=== PATIENT | male | born 2000 | race Caucasian/White ===

== ENCOUNTER 2020-02-19 13:28 | Inpatient (IN) | payer MEDICAID ==
[~2020-02-19] VITALS: Ht 170.2 cm; Wt 54.5 kg
[2020-02-19] MEDS ORDERED: QUEtiapine FUMARATE 100 MG TABLET PO PRN (16:45)
[2020-02-19] MEDS ORDERED: MAGNESIUM HYDROXIDE SUSPENSION 30 ML UDCUP PO PRN (16:45)
[2020-02-19] MEDS ORDERED: MAG HYDROX/AL HYDROX/SIMETH ES 30 ML SUSPENSION UDCUP PO PRN (16:45)
[2020-02-19] MEDS ORDERED: PROMETHAZINE HCL 25 MG TABLET PO PRN (16:45)
[2020-02-19] MEDS ORDERED: LOPERAMIDE HCL 2 MG CAPSULE PO PRN (16:45)
[2020-02-19] MEDS ORDERED: ACETAMINOPHEN 325 MG TABLET PO PRN (16:45)
[2020-02-19] MEDS ORDERED: GuaiFENesin/D-METHORPHAN [SUGAR-FREE] 200-20MG/10 ML SYRUP UDCUP PO PRN (16:45)
[2020-02-19] MEDS ORDERED: BACITRACIN 28.4 GM OINTMENT TP PRN (18:00)
[2020-02-19 19:04] VITALS: BP 121/73
[2020-02-19] MEDS: THIAMINE 100 MG TABLET PO SCH (19:54)
[2020-02-19] MEDS: ZOLPIDEM TARTRATE 10 MG TABLET PO PRN (20:34)
[2020-02-20] MEDS: HydrOXYzine PAMOATE 50 MG CAPSULE PO PRN ×2 (06:41→17:25)
[2020-02-20 06:49] VITALS: BP 112/65
[2020-02-20 08:02] LABS: BASOPHILS % (AUTO) 1.3 % (0.0-2.0); EOSINOPHILS % (AUTO) 8.5 % (1.0-6.0); HEMATOCRIT 42.8 % (41-53); HEMOGLOBIN 14.1 g/dL (13.5-17.5); LYMPHOCYTES # (AUTO) 2.6 K/uL (1.0-4.8); LYMPHOCYTES % (AUTO) 37.6 % (22.0-44.0); MEAN CORPUSCULAR HEMOGLOBIN 31.2 pg (26.0-34.0); MEAN CORPUSCULAR HGB CONC 32.9 G/dL (31.0-37.0); MEAN CORPUSCULAR VOLUME 95 fL (80-100); NEUTROPHILS # (AUTO) 2.7 K/uL (1.8-7.7); NEUTROPHILS % (AUTO) 38.6 % (40.0-70.0); PLATELET COUNT (AUTO) 461 K/uL (150-450); RED BLOOD CELL COUNT(AUTO) 4.52 MIL/uL (4.50-5.90); RED CELL DISTRIBUTION WIDTH 13.6 % (11.5-14.5)
[2020-02-20 08:33] LABS: ALANINE AMINOTRANSFERASE 22 U/L (12-78); ALBUMIN 3.7 g/dL (3.4-5.0); ALKALINE PHOSPHATASE 39 U/L (46-116); ANION GAP 10 mmol/L (8-16); ASPARTATE AMINOTRANSFERASE 15 U/L (15-37); BILIRUBIN,TOTAL 1.1 mg/dL (0.1-1.0); CARBON DIOXIDE 26 mmol/L (22-29); CHLORIDE 107 mmol/L (98-107); CHOL/HDL RATIO 2.8 (4.2-7.3); CHOLESTEROL 110 mg/dL (131-200); CREATININE 0.77 mg/dL (0.60-1.30); FREE T4 (FREE THYROXINE) 0.91 ng/dL (0.76-1.46); GLOMERULAR FILTR. RATE CALC > 60 mL/min (>60); GLUCOSE,RANDOM 79 mg/dL (70-110); HDL CHOLESTEROL 40 mg/dL (40-60); LDL CHOL (CALC.) 54 mg/dL (0-130); SODIUM SERUM 143 mmol/L (136-145); THYROID STIMULATING HORMONE 2.19 uIU/mL (0.36-3.74); TRIGLYCERIDES 81 mg/dL (15-150); UREA NITROGEN, BLOOD 12 mg/dL (7-18)
[2020-02-20 08:37] VITALS: BP 104/49
[2020-02-20 08:56] LABS: HEMOGLOBIN A1C 5.1 % (3.8-5.6)
[2020-02-20] MEDS: SERTRALINE HCL 50 MG TABLET PO SCH (09:35)
[2020-02-20] MEDS: MULTIVITAMINS WITH MINERALS, THERAPEUTIC TABLET PO SCH (09:35)
[2020-02-20] MEDS: FOLIC ACID 1 MG TABLET PO SCH (09:36)
[2020-02-20] MEDS: THIAMINE 100 MG TABLET PO SCH ×2 (09:36→16:23)
[2020-02-20 16:15] VITALS: BP 110/68
[2020-02-20] MEDS: BACITRACIN 28.4 GM OINTMENT TP SCH (16:24)
[2020-02-20] MEDS: ZOLPIDEM TARTRATE 10 MG TABLET PO PRN (20:34)
[2020-02-20] MEDS: QUEtiapine FUMARATE 200 MG TABLET PO SCH (20:34)
[2020-02-20] MEDS ORDERED: QUEtiapine FUMARATE 100 MG TABLET PO SCH (21:00)
[2020-02-21 05:50] VITALS: BP 114/69
[2020-02-21] MEDS ORDERED: DiphenhydrAMINE HCL 25 MG CAPSULE PO PRN ×2 (07:45→08:30)
[2020-02-21] MEDS ORDERED: DiphenhydrAMINE HCL 50 MG/ML VIAL IM ONE (07:45)
[2020-02-21] MEDS: FOLIC ACID 1 MG TABLET PO SCH (08:03)
[2020-02-21] MEDS: SERTRALINE HCL 50 MG TABLET PO SCH (08:03)
[2020-02-21] MEDS: THIAMINE 100 MG TABLET PO SCH ×2 (08:03→16:21)
[2020-02-21] MEDS: MULTIVITAMINS WITH MINERALS, THERAPEUTIC TABLET PO SCH (08:03)
[2020-02-21 08:14] VITALS: BP 116/70
[2020-02-21] MEDS: BACITRACIN 28.4 GM OINTMENT TP SCH ×2 (09:00→16:22)
[2020-02-21] MEDS ORDERED: NALTREXONE HCL 50 MG TABLET PO SCH (09:00)
[2020-02-21] MEDS ORDERED: SERT50TA12 PO ×2 (09:32→13:46)
[2020-02-21] MEDS ORDERED: QUET200T PO (09:32)
[2020-02-21] MEDS ORDERED: NALT50TA6 PO (09:32)
[2020-02-21] MEDS: LORazepam 2 MG TABLET PO PRN ×2 (12:58→16:58)
[2020-02-21] MEDS ORDERED: QUET200T29 PO (13:46)
[2020-02-21] MEDS ORDERED: DISU250 PO (13:46)
[2020-02-21] MEDS ORDERED: DIPH50 PO (13:46)
[2020-02-21 16:17] VITALS: BP 139/75
[2020-02-21] MEDS: DiphenhydrAMINE HCL 50 MG CAPSULE PO SCH ×2 (16:21→20:26)
[2020-02-21] MEDS: QUEtiapine FUMARATE 200 MG TABLET PO SCH (20:25)
[2020-02-21] MEDS: ZOLPIDEM TARTRATE 10 MG TABLET PO PRN (20:26)
[2020-02-22 05:29] VITALS: BP 119/66
[2020-02-22] MEDS: DiphenhydrAMINE HCL 50 MG CAPSULE PO SCH ×2 (06:07→12:51)
[2020-02-22 08:14] VITALS: BP 126/84
[2020-02-22] MEDS ORDERED: PredniSONE 20 MG TABLET PO ONE (08:30)
[2020-02-22] MEDS ORDERED: SERTRALINE HCL 50 MG TABLET PO SCH (09:00)
[2020-02-22] MEDS ORDERED: DISULFIRAM 250 MG TABLET PO SCH (09:00)
[2020-02-22] MEDS: THIAMINE 100 MG TABLET PO SCH (09:47)
[2020-02-22] MEDS: MULTIVITAMINS WITH MINERALS, THERAPEUTIC TABLET PO SCH (09:51)
[2020-02-22] MEDS: FOLIC ACID 1 MG TABLET PO SCH (09:53)
[2020-02-22] MEDS: BACITRACIN 28.4 GM OINTMENT TP SCH (09:54)
== END 2020-02-22 15:30 | disposition home or self-care (01) | DRG 750 ==
LOC: B3A 18:28
PROVIDERS: ADMIT Psychiatry & Neurology Psychiatry; ATTEND Psychiatry & Neurology Psychiatry
DX: F25.9 Schizoaffective disorder, unspecified (principal); Z91.19 Patient's noncompliance with other medical treatment and regimen; F17.210 Nicotine dependence, cigarettes, uncomplicated; F32.9 Major depressive disorder, single episode, unspecified; G47.00 Insomnia, unspecified
CPT/HCPCS: 83036; 84439; 84443; 86592; 87081; J1200

== ENCOUNTER 2020-02-21 08:58 | Emergency (ER) | payer MEDICAID ==
[~2020-02-21] VITALS: Ht 170.2 cm; Wt 53.0 kg
[2020-02-21] MEDS ORDERED: NALT50TA6 PO (09:32)
[2020-02-21] MEDS ORDERED: QUET200T PO (09:32)
[2020-02-21] MEDS ORDERED: SERT50TA12 PO ×2 (09:32→13:46)
[2020-02-21] MEDS ORDERED: PredniSONE 20 MG TABLET PO ONE (09:45)
[2020-02-21 10:15] VITALS: BP 123/81
[2020-02-21] MEDS ORDERED: DISU250 PO (13:46)
[2020-02-21] MEDS ORDERED: DIPH50 PO (13:46)
[2020-02-21] MEDS ORDERED: QUET200T29 PO (13:46)
== END 2020-02-21 10:22 | disposition home or self-care (01) ==
LOC: EMS 09:01
DX: R21 Rash and other nonspecific skin eruption (principal); T45.0X5A Adverse effect of antiallergic and antiemetic drugs, initial encounter; F17.210 Nicotine dependence, cigarettes, uncomplicated; Z79.899 Other long term (current) drug therapy; Y92.89 Other specified places as the place of occurrence of the external cause
CPT/HCPCS: 99283; J7512